=== PATIENT | male | born 1980 | race Caucasian/White ===

== ENCOUNTER 2021-09-24 10:04 | Emergency (ER) | payer OTHER ==
[2021-09-24 10:11] VITALS: TEMP 98.3
[2021-09-24] MEDS ORDERED: LIDOCAINE 1% INJ 10MG/ML (5 ML VIAL-PF) SQ ONE ×2 (10:29→10:56)
--- NOTE | 2021-09-24 10:33 | ED ---
Wound/Laceration HPI - General Chief Complaint: Wound/Laceration Stated Complaint: Laceration L hand Time Seen by Provider: 09/24/21 10:25 Source: patient, RN notes reviewed, old records reviewed Mode of arrival: ambulatory Limitations: no limitations - History of Present Illness Initial Comments: 41-year-old male presents after cutting the distal tip of his left middle finger while trying to cut a frozen bagel. Denies any other injury. Patient states tetanus shot is up-to-date. -: minutes(s) (30) Extremity Location: Left: Hand (middle finger distal finger pad) Patient Tetanus UTD: Yes (2016) Context: accidental, sharp object use Associated Symptoms: none Treatments Prior to Arrival: bandage - Related Data Allergies Allergy/AdvReac Type Severity Reaction Status Date / Time No Known Allergies Allergy Verified 09/24/21 10:11 Review of Systems ROS Statement: Those systems with pertinent positive or pertinent negative responses have been documented in the HPI. ROS Other: All systems not noted in ROS Statement are negative. Past Medical History Past Medical History: No Reported History Past Surgical History: No Surgical Hx Reported Past Psychological History: Anxiety Smoking Status: Current every day smoker Past Alcohol Use History: Occasional Past Drug Use History: Marijuana General Exam Limitations: no limitations General appearance: alert, in no apparent distress Head exam: Present: atraumatic Eye exam: Absent: scleral icterus, conjunctival injection Respiratory exam: Absent: respiratory distress, accessory muscle use Cardiovascular Exam: Present: tachycardia Left Hand Wrist exam: Present: full ROM, tenderness, swelling, laceration (laceration finger pad middle finger) Vascular: Present: normal capillary refill Neurological exam: Present: alert, oriented X3, normal gait Psychiatric exam: Present: anxious Skin exam: Present: warm, dry, normal color. Absent: cyanosis, diaphoretic Course Vital Signs 09/24/21 09/24/21 10:06 12:19 Temperature 98.3 F Pulse Rate 108 H 89 Respiratory 26 H 18 Rate Blood Pressure 151/84 154/84 O2 Sat by Pulse 97 96 Oximetry Procedures - Laceration Laceration #1 Consent Obtained: verbal consent Site: hand (left middle finger pad) Size (cm): 2 Description: flap Depth: simple, single layer Anesthetic Used: lidocaine 1% Anesthesia Technique: local infiltration, nerve block Pre-repair: irrigated extensively Type of Sutures: nylon Size of Sutures: 5-0 Number of Sutures: 5 Technique: simple, interrupted Patient Tolerated Procedure: well, no complications Medical Decision Making - Medical Decision Making X-ray negative for fracture or foreign body. Wound was closed with 5 sutures after irrigation. Patient was instructed to follow-up with his primary care doctor for suture removal in 7-10 days. He was given an aluminum foam splint to protect the distal tip. Directed to use a thin layer of Neosporin daily. Return to the emergency room with any new or concerning symptoms and signs of infection, fever, drainage or increased pain. Case discussed with Dr. Fernández. Disposition Clinical Impression: Laceration Disposition: HOME SELF-CARE Condition: Good Additional Instructions: Keep wound clean and dry. Place a thin layer of Neosporin on it daily. Sutures to be removed in 7-10 days. You've stated that your tetanus shot is up-to-date. Return to the emergency room with any new or concerning symptoms including signs of infection including redness, pain or drainage. Is patient prescribed a controlled substance at d/c from ED?: No Referrals: None,Stated [Primary Care Provider] - 1-2 days Time of Disposition: 12:05
[2021-09-24] MEDS ORDERED: ONDANSETRON 4 MG TAB PO STA (10:42)
[2021-09-24] MEDS ORDERED: BACITRACIN OINT 1 EACH PACKET TOPICAL ONE (11:26)
--- NOTE | 2021-09-24 12:04 | XR ---
EXAMINATION TYPE: XR finger LT DATE OF EXAM: 09/24/2021 CLINICAL HISTORY: pain TECHNIQUE: 3 views of the left third digit are submitted. COMPARISON: None FINDINGS: No displaced fracture is seen with certainty. Joint spaces are well-preserved. Distal soft tissue laceration without evidence for radiopaque foreign body. IMPRESSION: No acute displaced fracture or dislocation.
[2021-09-24 12:20] VITALS: BP 154/84; PULSE 89; RESP 18
== END 2021-09-24 12:20 | disposition home or self-care (01) ==
LOC: EC 10:04
DX: S61.412A Laceration without foreign body of left hand, initial encounter (principal); F17.200 Nicotine dependence, unspecified, uncomplicated; W26.8XXA Contact with other sharp object(s), not elsewhere classified, initial encounter
CPT/HCPCS: 73140; 99283; 12001; J2001

== ENCOUNTER → 2022-12-23 | Outpatient (CLI) | payer OTHER ==
--- NOTE | 2022-12-23 12:33 | US ---
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 Normal bilateral CONCHA indices.
--- NOTE | 2022-12-23 15:37 | US ---
EXAMINATION TYPE: US venous doppler duplex LE LT DATE OF EXAM: 12/23/2022 7:50 AM COMPARISON: NONE CLINICAL INDICATION: Male, 42 years old with history of L97.822 NON-PRESSURE CHRONIC ULCER OF OTHER P ART O; Ulcer on anterior left felder since 2014, diabetic SIDE PERFORMED: Left TECHNIQUE: The lower extremity deep venous system is examined utilizing real time linear array sonog corrine with graded compression, doppler sonography and color-flow sonography. VESSELS IMAGED: Common Femoral Vein Deep Femoral Vein Greater Saphenous Vein * Femoral Vein Popliteal Vein Small Saphenous Vein * Proximal Calf Veins Posterior tibial veins (* superficial vessels) Left Leg: Negative for DVT IMPRESSION: No evidence for DVT within the left lower extremity.
== END | disposition home or self-care (01) ==
LOC: RADUSWWP 07:26
PROVIDERS: ATTEND Nurse Practitioner Family
DX: L97.822 Non-pressure chronic ulcer of other part of left lower leg with fat layer exposed (principal); F17.218 Nicotine dependence, cigarettes, with other nicotine-induced disorders
CPT/HCPCS: 93922